=== PATIENT | male | born 1970 | race Caucasian/White ===

== ENCOUNTER 2022-09-16 14:11 | Emergency (ER) | payer OTHER ==
[~2022-09-16] VITALS: Ht 172.7 cm; Wt 99.3 kg
[2022-09-16 14:29] VITALS: BP 139/89
[2022-09-16 14:30] VITALS: BP 137/84
[2022-09-16 14:37] VITALS: BP 130/85
[2022-09-16 14:45] VITALS: BP 126/84
[2022-09-16 14:57] LABS: BASO% 0.1 % (0-3); EOS% 0.2 % (0-8); HEMATOCRIT 44.6 % (39.0-50.0); HEMOGLOBIN 14.9 g/dl (14.0-18.0); IMMATURE GRANULOCYTES 0.3 % (0.0-5.0); MEAN CORPUSCULAR HGB 29.7 pG CALC (26.0-32.0); MEAN CORPUSCULAR HGB CONC 33.4 g/dL CAL (32.0-36.0); MONO% 6.8 % (2-13); NEUT# 12.93 thou/uL (1.82-7.42); NEUT% 85.6 % (42-76); RED BLOOD COUNT 5.01 mill/uL (4.70-6.10); RED CELL DISTRI WIDTH 12.1 % (11.5-15.5)
[2022-09-16 15:00] VITALS: BP 127/83
[2022-09-16 15:12] LABS: ALBUMIN 4.7 g/dL (3.2-5.0); ALKALINE PHOSPHATASE 46 u/l (38-126); ANION GAP 13 (6-22 (CALC)); BUN 15 mg/dL (9-20); BUN/CREATININE RATIO 18 (12-20 (CALC)); CARBON DIOXIDE 29 mmol/l (22-30); CHLORIDE 103 mmol/l (95-108); CREATININE 0.8 mg/dL (0.7-1.3); GFR FOR AFR.AMER. > 60 ML/MIN (>=60 (CALC)); GFR OTHER RACES > 60 ML/MIN (>=60 (CALC)); POTASSIUM 4.1 mmol/l (3.5-5.1); SGOT/AST 25 u/l (17-59); SODIUM 140 mmol/l (137-146); TOTAL PROTEIN 7.7 g/dL (6.3-8.2)
[2022-09-16 16:02] VITALS: BP 127/83
[2022-09-16] MEDS ORDERED: MOTRIN400 MG/TAB PO (16:12)
[2022-09-16] MEDS ORDERED: AMOXICILLIN500 M2 PO (16:12)
== END 2022-09-16 16:57 | disposition home or self-care (01) | DRG 159 ==
LOC: ED 14:11
PROVIDERS: Family Medicine
DX: S02.652A Fracture of angle of left mandible, initial encounter for closed fracture (principal); X58.XXXA Exposure to other specified factors, initial encounter